=== PATIENT | male | born 1955 | race Caucasian/White ===

== ENCOUNTER 2017-05-31 12:30 | Inpatient (IN) | payer BC ==
[~2017-05-31] VITALS: Ht 177.8 cm; Wt 87.2 kg
[2017-05-31 13:13] LABS: BASOPHIL (%) 0.6 % (0-1); EOSINOPHIL COUNT 0.1 K/uL (0-0.3); HEMATOCRIT 42.1 % (38.0-50.0); HEMOGLOBIN 14.8 G/DL (12.5-16.6); IMMATURE GRANULOCYTE (%) 0.3 % (0.0-0.7); LYMPHOCYTE (%) 19.2 % (15-42); LYMPHOCYTE COUNT 1.4 K/uL (1.0-2.8); MCH 29.8 PG (29.0-34.0); MCHC 35.2 G/DL (30.0-36.0); MCV 84.7 FL (86-99); MONOCYTE (%) 9.5 % (3-12); MONOCYTE COUNT 0.7 K/uL (0-0.8); NEUTROPHIL (%) 69.4 % (45-76); PLATELET COUNT 253 K/uL (156-360); RBC DIS.WIDTH-SD 36.7 % (39-53); RED BLOOD COUNT 4.97 M/uL (4.00-5.50); WHITE BLOOD COUNT 7.1 K/uL (4.1-10.2)
[2017-05-31 13:18] LABS: INTER. NORMALIZED RATIO 1.1
[2017-05-31 13:22] LABS: AMYLASE 62 IU/L (1-118); CHLORIDE 106 mEq/L (99-109); POTASSIUM 3.8 mEq/L (3.7-5.4); SODIUM 139 mEq/L (136-147)
[2017-05-31 13:24] LABS: GLUCOSE 96 mg/dL (70-99)
[2017-05-31 13:27] LABS: SERUM ETHYL ALCOHOL < 10 mg/dL
[2017-05-31 13:28] LABS: CREATININE 0.9 mg/dL (0.6-1.3); GFR ESTIMATE (CALCULATED) > 59 mL/min/ (58.99-99999)
[2017-05-31 13:29] LABS: UREA NITROGEN (BUN) 17 mg/dL (9-23)
[2017-05-31 13:31] LABS: LIPASE 32 U/L (1.0-51.0)
[2017-05-31 13:33] LABS: TROP-I INTERPRETATION NEGATIVE; TROPONIN-I < 0.01 ng/mL (0.0-0.30)
[2017-05-31] MEDS ORDERED: PRILOSEC20 MG PO (14:41)
[2017-05-31] MEDS ORDERED: ANDROGEL75 GM TD (14:42)
[2017-05-31] MEDS ORDERED: LO-DOSE ASPIRIN81 M2 PO (14:42)
[2017-05-31] MEDS ORDERED: TRAZODONE HCL50 MG PO (14:44)
[2017-05-31] MEDS ORDERED: GLUCOPHAGE500 MG PO (14:44)
[2017-05-31] MEDS ORDERED: MEN'S MULTI-VI1 EACH PO (14:45)
[2017-05-31] MEDS ORDERED: SLEEP AID PO (14:46)
[2017-05-31] MEDS ORDERED: NASAL DECONGEST10 MG PO (14:54)
[2017-05-31 17:43] LABS: AMPHETAMINE NEGATIVE (500 ng/mL); BARBITURATES NEGATIVE (200 ng/mL); BENZODIAZEPINES NEGATIVE (150 ng/mL); BUPRENORPHINE NEGATIVE (10 ng/mL); COCAINE NEGATIVE (150 ng/mL); METHADONE NEGATIVE (200 ng/mL); METHAMPHETAMINE NEGATIVE (500 ng/mL); OPIATES (MORPHINE) NEGATIVE (100 ng/mL); OXYCODONE NEGATIVE (100 ng/mL); PHENCYCLIDINE NEGATIVE (25 ng/mL); PROPOXYPHENE NEGATIVE (300 ng/mL); THC CANNABINOIDS NEGATIVE (50 ng/mL); TRICYCLIC ANTIDEPRESSANTS NEGATIVE (300 ng/mL)
[2017-05-31 19:27] LABS: APPEARANCE CLEAR ((CLEAR)); BILIRUBIN NEGATIVE; BLOOD NEGATIVE; COLOR YELLOW ((YELLOW)); GLUCOSE (STRIP) NEGATIVE; KETONES NEGATIVE; LEUKOCYTES NEGATIVE; NITRITE NEGATIVE; PROTEIN (STRIP) NEGATIVE; SPECIFIC GRAVITY 1.039 (1.000-1.030); UCUL ADDED? NO; UROBILINOGEN 0.2 MG/DL (0.2-1.0)
[2017-05-31 20:01] LABS: HDL CHOLESTEROL 39 MG/DL (Desirable>=40); LDL CHOLESTEROL 82 mg/dL (Desirable<100); NON-HDL CHOLESTEROL 106 mg/dL (Desirable<160); TOTAL CHOLESTEROL 145 mg/dL (Desirable<200); TRIGLYCERIDES 122 MG/DL (Normal: <150)
[2017-05-31 20:43] VITALS: BP 139/76
[2017-06-01 00:18] VITALS: BP 116/73
[2017-06-01 03:57] VITALS: BP 118/67
[2017-06-01 08:10] VITALS: BP 117/68
[2017-06-01 12:55] VITALS: BP 129/71
[2017-06-01 16:24] VITALS: BP 121/76
[2017-06-01 20:00] VITALS: BP 135/79
[2017-06-02 00:33] VITALS: BP 136/73
[2017-06-02 04:00] VITALS: BP 122/77
[2017-06-02 07:58] VITALS: BP 132/80
[2017-06-02] MEDS ORDERED: LISINOPRIL2.5 MG PO (09:45)
[2017-06-02] MEDS ORDERED: ATORVASTATIN CA80 MG PO (09:45)
[2017-06-02 10:12] LABS: HEMOGLOBIN A1c (GLYCOHEMOGLOB) 5.9 % (Below 5.7)
[2017-06-02 11:51] VITALS: BP 135/78
[2017-06-02 15:48] VITALS: BP 126/71
== END 2017-06-02 18:10 | disposition home or self-care (01) | DRG 66 ==
LOC: EME 12:30 → ENRESERV 19:14 → 5SOUTH 19:14 → EDOF 19:14 → ENRESERV 20:07 → 5SOUTH 20:43
PROVIDERS: Emergency Medicine; Hospitalist; Physician Assistant Medical
DX: I63.311 Cerebral infarction due to thrombosis of right middle cerebral artery (principal); E11.9 Type 2 diabetes mellitus without complications; E11.40 Type 2 diabetes mellitus with diabetic neuropathy, unspecified; G47.00 Insomnia, unspecified; R29.702 NIHSS score 2; K21.9 Gastro-esophageal reflux disease without esophagitis; R29.810 Facial weakness; Z79.82 Long term (current) use of aspirin; Z79.4 Long term (current) use of insulin; Z79.899 Other long term (current) drug therapy
CPT/HCPCS: 70450; 70496; 70498; 70551; 80047; 80048; 80061; 81003; 82150; 82948; 83036; 83690; 84484; 85025; 85610; 85730; 86850; 86900; 86901; 93306; 99281; 99285; G0480; J1644; J1815